=== PATIENT | male | born 1965 | race Caucasian/White ===

== ENCOUNTER → 2017-01-11 | Outpatient (CLI) | payer BC ==
[~2017-01-11] MED LIST: AMOX TR-K CLV1 EAC4 PO; Baciguent TP; CYCLOBENZAPRINE10 MG PO; ENDOCET 5-3251 EACH PO; HYDROMORPHONE HC2 MG PO; LIDOCAINE700 MG TD; NAPROSYN250 MG PO; PROTONIX40 MG PO; RESTASIS 01 DROP/0.4 BOTH EYES; SUMATRIPTAN SU100 MG PO; VERAPAMIL HCL360 MG PO; VITAMIN D31000 UNIT PO
== END | disposition home or self-care (01) ==
LOC: CDC 15:35
DX: Z01.810 Encounter for preprocedural cardiovascular examination (principal); K42.9 Umbilical hernia without obstruction or gangrene; R94.31 Abnormal electrocardiogram [ECG] [EKG]
CPT/HCPCS: 93000

== ENCOUNTER 2017-01-29 12:47 | Day surgery (SDC) | payer BC ==
[~2017-01-29] VITALS: Ht 191.8 cm; Wt 122.0 kg
[~2017-01-29 12:47] MED LIST changes: +CELEBREX200 MG PO; +ULTRAM50 MG PO; +VITAMIN D2000 UNIT PO; -VITAMIN D31000 UNIT PO; +ZESTRIL10 MG PO
[2017-01-29 13:15] VITALS: BP 134/78
[2017-01-29] MEDS ORDERED: MOTRIN600 MG PO (15:34)
[2017-01-29] MEDS ORDERED: NORCO 5/3251 TABLET PO (15:34)
[2017-01-29 16:20] VITALS: BP 119/70
[2017-01-29 17:20] VITALS: BP 113/56
== END 2017-01-29 17:45 | disposition home or self-care (01) ==
LOC: SDC 12:47
PROC: 0WUF0JZ Supplement Abdominal Wall with Synthetic Substitute, Open Approach (ICD-10-PCS; principal; 2017-01-29)
DX: K42.9 Umbilical hernia without obstruction or gangrene (principal); I10 Essential (primary) hypertension; J45.909 Unspecified asthma, uncomplicated; G47.30 Sleep apnea, unspecified; E66.9 Obesity, unspecified; Z68.34 Body mass index [BMI] 34.0-34.9, adult; Z80.7 Family history of other malignant neoplasms of lymphoid, hematopoietic and related tissues; Z82.49 Family history of ischemic heart disease and other diseases of the circulatory system
CPT/HCPCS: C1781; J0690; J1100; J1170; J2250; J2405; J2765; J3010; S0020

== ENCOUNTER 2017-03-14 11:23 | Emergency (ER) | payer BC ==
[~2017-03-14] VITALS: Ht 190.5 cm; Wt 121.0 kg
[~2017-03-14 11:23] MED LIST changes: +MOTRIN600 MG PO; +NORCO 5/3251 TABLET PO
[2017-03-14] MEDS ORDERED: MOTRIN600 MG PO (16:06)
[2017-03-14 16:20] VITALS: BP 142/72
== END 2017-03-14 16:23 | disposition home or self-care (01) ==
LOC: EME 11:23
DX: M79.661 Pain in right lower leg (principal); M79.662 Pain in left lower leg; I10 Essential (primary) hypertension; J45.909 Unspecified asthma, uncomplicated; K21.9 Gastro-esophageal reflux disease without esophagitis
CPT/HCPCS: 82550; 93970; 99281; 99284

== ENCOUNTER → 2017-05-10 | Day surgery (SDC) | payer BC ==
[~2017-05-10] VITALS: Ht 190.5 cm; Wt 117.9 kg
[~2017-05-10] MED LIST changes: +FLEXERIL10 MG PO; +HYDROCODON-ACE1 EAC9 PO; +IBUPROFEN800 MG PO; +LORCET 5-325 M1 EACH PO; -RESTASIS 01 DROP/0.4 BOTH EYES; +RESTASIS MULTI5.5 ML BOTH EYES; +VITAMIN D31000 UNIT PO
[2017-05-10 11:10] VITALS: BP 139/77
[2017-05-10 16:06] VITALS: BP 134/69
[2017-05-10 17:15] VITALS: BP 122/60
[2017-05-10 18:09] VITALS: BP 132/63
== END | disposition home or self-care (01) ==
LOC: SDC 10:39
DX: S72.435A Nondisplaced fracture of medial condyle of left femur, initial encounter for closed fracture (principal); M17.12 Unilateral primary osteoarthritis, left knee; S83.242A Other tear of medial meniscus, current injury, left knee, initial encounter; I10 Essential (primary) hypertension; K21.9 Gastro-esophageal reflux disease without esophagitis; J45.909 Unspecified asthma, uncomplicated; X58.XXXA Exposure to other specified factors, initial encounter
CPT/HCPCS: 73560; 76000; J0131; J1100; J1170; J1885; J2250; J2270; J2795; J3010

== ENCOUNTER 2017-05-11 03:50 | Observation (INO) | payer BC ==
[~2017-05-11] VITALS: Ht 195.6 cm; Wt 119.0 kg
[~2017-05-11 03:50] MED LIST changes: -FLEXERIL10 MG PO; -HYDROCODON-ACE1 EAC9 PO; -IBUPROFEN800 MG PO
[2017-05-11 05:36] LABS: CHLORIDE 105 mEq/L (99-109)
[2017-05-11 05:37] LABS: SODIUM 138 mEq/L (136-147)
[2017-05-11 05:38] LABS: GLUCOSE 148 mg/dL (70-99)
[2017-05-11 05:42] LABS: CREATININE 0.9 mg/dL (0.6-1.3); GFR ESTIMATE (CALCULATED) > 59 mL/min/ (58.99-99999)
[2017-05-11 05:43] LABS: UREA NITROGEN (BUN) 15 mg/dL (9-23)
[2017-05-11 05:55] LABS: BASOPHIL (%) 0.1 % (0-1); EOSINOPHIL (%) 0.1 % (0-5); HEMATOCRIT 43.9 % (38.0-50.0); HEMOGLOBIN 15.1 G/DL (12.5-16.6); IMMATURE GRANULOCYTE (%) 0.4 % (0.0-0.7); LYMPHOCYTE (%) 6.1 % (15-42); MCH 30.2 PG (29.0-34.0); MCHC 34.4 G/DL (30.0-36.0); MCV 87.8 FL (86-99); MONOCYTE (%) 7.1 % (3-12); MONOCYTE COUNT 1.1 K/uL (0-0.8); NEUTROPHIL (%) 86.2 % (45-76); NEUTROPHIL COUNT 13.7 K/uL (1.8-6.4); PLATELET COUNT 273 K/uL (156-360); RBC DIS.WIDTH-CV 13.1 % (11.8-14.6); RBC DIS.WIDTH-SD 42.2 % (39-53); WHITE BLOOD COUNT 15.9 K/uL (4.1-10.2)
[2017-05-11 14:57] LABS: BASOPHIL (%) 0.2 % (0-1); EOSINOPHIL (%) 0.5 % (0-5); EOSINOPHIL COUNT 0.1 K/uL (0-0.3); HEMATOCRIT 44.1 % (38.0-50.0); IMMATURE GRANULOCYTE (%) 0.4 % (0.0-0.7); LYMPHOCYTE (%) 14.9 % (15-42); LYMPHOCYTE COUNT 2.4 K/uL (1.0-2.8); MCH 30.1 PG (29.0-34.0); MCV 88.6 FL (86-99); MONOCYTE (%) 7.2 % (3-12); MONOCYTE COUNT 1.1 K/uL (0-0.8); NEUTROPHIL (%) 76.8 % (45-76); NEUTROPHIL COUNT 12.1 K/uL (1.8-6.4); PLATELET COUNT 246 K/uL (156-360); RBC DIS.WIDTH-CV 13.1 % (11.8-14.6); RBC DIS.WIDTH-SD 42.7 % (39-53); RED BLOOD COUNT 4.98 M/uL (4.00-5.50); WHITE BLOOD COUNT 15.8 K/uL (4.1-10.2)
[2017-05-11 15:39] VITALS: BP 139/78
[2017-05-11 17:34] VITALS: BP 164/85
[2017-05-11 21:00] VITALS: BP 139/80
[2017-05-11 23:47] VITALS: BP 134/65
[2017-05-12 04:06] VITALS: BP 134/73
[2017-05-12 08:11] VITALS: BP 133/88
[2017-05-12 11:45] VITALS: BP 141/75
[2017-05-12] MEDS ORDERED: IBUPROFEN800 MG PO (14:25)
[2017-05-12] MEDS ORDERED: FLEXERIL10 MG PO (14:26)
[2017-05-12] MEDS ORDERED: ULTRAM50 MG PO (14:27)
[2017-05-12 15:56] VITALS: BP 117/72
[2017-05-12] MEDS ORDERED: HYDROCODON-ACE1 EAC9 PO (16:18)
== END 2017-05-12 17:36 | disposition home or self-care (01) ==
LOC: EME 03:50 → 5WEST 06:11 → EDOF 06:11 → ENRESERV 06:12 → 5WEST 15:19
PROVIDERS: Emergency Medicine; Nurse Practitioner Family
DX: G89.18 Other acute postprocedural pain (principal); M25.562 Pain in left knee; R09.02 Hypoxemia; I10 Essential (primary) hypertension; R11.0 Nausea; D72.829 Elevated white blood cell count, unspecified; M79.605 Pain in left leg; M79.604 Pain in right leg; M54.9 Dorsalgia, unspecified; G43.909 Migraine, unspecified, not intractable, without status migrainosus
CPT/HCPCS: 71275; 73700; 80048; 85025; 85025 91; 99281; 99285; G0378; J1170; J1200; J1644; J1885; J2250; J2270; J2405; J7030

== ENCOUNTER 2017-05-20 13:28 | Emergency (ER) | payer BC ==
[~2017-05-20] VITALS: Ht 190.5 cm; Wt 117.0 kg
[~2017-05-20 13:28] MED LIST changes: +FLEXERIL10 MG PO; +HYDROCODON-ACE1 EAC9 PO; +IBUPROFEN800 MG PO
[2017-05-20 13:55] LABS: BASOPHIL (%) 0.7 % (0-1); BASOPHIL COUNT 0.1 K/uL (0-0.1); EOSINOPHIL (%) 2.4 % (0-5); EOSINOPHIL COUNT 0.2 K/uL (0-0.3); HEMATOCRIT 46.5 % (38.0-50.0); HEMOGLOBIN 15.8 G/DL (12.5-16.6); IMMATURE GRANULOCYTE (%) 0.5 % (0.0-0.7); LYMPHOCYTE (%) 21.7 % (15-42); MCV 88.2 FL (86-99); MONOCYTE (%) 9.5 % (3-12); MONOCYTE COUNT 0.9 K/uL (0-0.8); NEUTROPHIL (%) 65.2 % (45-76); PLATELET COUNT 316 K/uL (156-360); RBC DIS.WIDTH-CV 12.8 % (11.8-14.6); RBC DIS.WIDTH-SD 41.5 % (39-53); RED BLOOD COUNT 5.27 M/uL (4.00-5.50); WHITE BLOOD COUNT 9.2 K/uL (4.1-10.2)
[2017-05-20 14:00] LABS: INTER. NORMALIZED RATIO 1.1
[2017-05-20 14:03] LABS: PTT 30.6 SEC (25-37)
[2017-05-20] MEDS ORDERED: XARELTO1 EACH PO (14:31)
[2017-05-20 14:39] LABS: CHLORIDE 106 MEQ/L (99-109); CREATININE 0.9 MG/DL (0.6-1.3); GFR ESTIMATE (CALCULATED) > 59 mL/min/ (58.99-99999); GLUCOSE 106 mg/dL (70-99); POTASSIUM 4.1 MEQ/L (3.7-5.4); SODIUM 142 MEQ/L (136-147); UREA NITROGEN (BUN) 14 mg/dL (9-23)
[2017-05-20 17:45] VITALS: BP 138/71
== END 2017-05-20 17:45 | disposition home or self-care (01) ==
LOC: EME 13:28
PROVIDERS: Emergency Medicine
DX: I82.4Z2 Acute embolism and thrombosis of unspecified deep veins of left distal lower extremity (principal); Z98.890 Other specified postprocedural states; I10 Essential (primary) hypertension; J45.909 Unspecified asthma, uncomplicated; K21.9 Gastro-esophageal reflux disease without esophagitis
CPT/HCPCS: 80048; 85025; 85610; 85730; 99281; 99283